=== PATIENT | female | born 1945 | race Asian ===

== ENCOUNTER 2016-09-06 09:54 | Inpatient (IN) | payer MEDICARE, OTHER ==
[~2016-09-06] VITALS: Ht 149.9 cm; Wt 49.4 kg
[2016-09-06] MEDS ORDERED: SODIUM CHLORIDE FLUSH 10ML SYR IVF ONE (10:00)
[2016-09-06] MEDS ORDERED: CHOL400C11 PO (10:31)
[2016-09-06] MEDS ORDERED: FERR325T10 PO (10:31)
[2016-09-06] MEDS ORDERED: SEVE800T PO (10:31)
[2016-09-06] MEDS ORDERED: LISI-170 PO (10:31)
[2016-09-06] MEDS ORDERED: MULT-658 PO (10:31)
[2016-09-06] MEDS ORDERED: INSU100V8 SQ (10:31)
[2016-09-06] MEDS ORDERED: PARI1CAP3 PO (10:31)
[2016-09-06] MEDS ORDERED: AMLO10TA2 PO ×2 (10:31→15:27)
[2016-09-06 10:48] LABS: ASPARTATE AMINO TRANSFERASE 40 U/L (15-37)
[2016-09-06 10:53] LABS: BLOOD UREA NITROGEN 132 mg/dL (7-18)
[2016-09-06] MEDS ORDERED: SODIUM CHLORIDE FLUSH 10ML SYR IVF PRN (11:00)
[2016-09-06] MEDS ORDERED: ONDANSETRON 2MG/ML, 2ML IVP PRN (12:00)
[2016-09-06] MEDS ORDERED: INSULIN GLARGINE HUM REC ANLOG 1 UNIT SQ SCH (12:00)
[2016-09-06] MEDS ORDERED: MORPHINE SULFATE 4 MG/ML, 1ML IVPush PRN (12:00)
[2016-09-06] MEDS ORDERED: HYDROcodone/APAP 5/325 TABLET PO PRN (12:00)
[2016-09-06] MEDS ORDERED: LORazepam 2 MG/ML, 1ML IVPush PRN (12:00)
[2016-09-06 12:26] LABS: IS PT STATUS REG ER OR PRE ER? NO
[2016-09-06 12:36] VITALS: BP 108/64
[2016-09-06] MEDS ORDERED: GABA100C PO (15:27)
[2016-09-06] MEDS ORDERED: LOVA40TA2 PO (15:27)
[2016-09-06] MEDS ORDERED: LABE200T3 PO (15:27)
[2016-09-06] MEDS ORDERED: GABA100C8 PO (15:27)
[2016-09-06] MEDS ORDERED: LISI40TA PO (15:27)
[2016-09-06] MEDS ORDERED: CLOP75TA PO (15:27)
[2016-09-06] MEDS ORDERED: HYDR-3342 PO (15:27)
[2016-09-06 15:37] VITALS: BP 113/60
[2016-09-06 15:59] VITALS: BP 130/62
[2016-09-06] MEDS: INSULIN REGULAR 100 UNITS/ML, 3ML VIAL SQ-INSULIN SCH ×2 (16:00→21:00)
[2016-09-06] MEDS ORDERED: SEVELAMER 800MG TABLET PO SCH (16:00)
[2016-09-06 16:30] VITALS: BP 127/62
[2016-09-06] MEDS: SEVELAMER 800MG TABLET PO SCH (17:00)
[2016-09-06 17:34] LABS: IS PT STATUS REG ER OR PRE ER? YES
[2016-09-06] MEDS: LABETALOL 200 MG TABLET PO SCH (18:00)
[2016-09-06] MEDS ORDERED: DARBEPOETIN 100 MCG/ML SQ SCH (19:00)
[2016-09-06 19:45] LABS: ABG COLLECTION SITE RIGHT RADIAL; COLLATERAL CIRCULATION TESTING NORMAL
[2016-09-06 20:00] VITALS: BP 150/70
[2016-09-06] MEDS ORDERED: NITROGLYCERIN 0.4 MG BOTTLE (25 TABS) SL ONE (20:30)
[2016-09-06] MEDS: SODIUM CHLORIDE FLUSH 10ML SYR IVF SCH (21:00)
[2016-09-06] MEDS ORDERED: LISINOPRIL 20 MG TABLET PO SCH (21:00)
[2016-09-06] MEDS: LOVASTATIN 40 MG TABLET PO SCH (22:52)
[2016-09-06] MEDS: GABAPENTIN 100 MG CAPSULE PO SCH (22:53)
[2016-09-06] MEDS: LISINOPRIL 20 MG TABLET PO SCH (22:54)
[2016-09-06 23:25] LABS: IS PT STATUS REG ER OR PRE ER? NO
[2016-09-06] MEDS: HEPARIN 25,000 UNITS/500ML PMX 500 ML IV PRN (23:29)
[2016-09-06] MEDS ORDERED: HEPARIN 5,000 UNITS/ML, 1ML IV ONE (23:30)
[2016-09-07] VITALS (7 sets, daily range): BP systolic 76–120; BP diastolic 53–63
[2016-09-07 06:02] LABS: BLOOD UREA NITROGEN 54 mg/dL (7-18)
[2016-09-07 06:03] LABS: IS PT STATUS REG ER OR PRE ER? NO
[2016-09-07] MEDS: HEPARIN 5,000 UNITS/ML, 1ML IV PRN ×3 (06:48→21:30)
[2016-09-07] MEDS: INSULIN REGULAR 100 UNITS/ML, 3ML VIAL SQ-INSULIN SCH ×4 (07:00→21:32)
[2016-09-07] MEDS: AMLODIPINE 5 MG TABLET PO SCH (09:00)
[2016-09-07] MEDS ORDERED: FAMOTIDINE 20 MG/2 ML IV SCH (09:00)
[2016-09-07] MEDS ORDERED: AMLODIPINE BESYLATE PO SCH (09:00)
[2016-09-07] MEDS: SODIUM CHLORIDE FLUSH 10ML SYR IVF SCH ×2 (09:00→21:28)
[2016-09-07] MEDS: FERROUS SULFATE 325 MG TABLET PO SCH (10:01)
[2016-09-07] MEDS: MULTIVITAMIN 1 TABLET PO SCH (10:01)
[2016-09-07] MEDS: FAMOTIDINE 20 MG TABLET PO SCH (10:01)
[2016-09-07] MEDS: LABETALOL 200 MG TABLET PO SCH ×3 (10:01→18:17)
[2016-09-07] MEDS: PARICALCITOL 1 MCG CAPSULE PO SCH (10:01)
[2016-09-07] MEDS: SEVELAMER 800MG TABLET PO SCH ×3 (10:01→17:46)
[2016-09-07] MEDS: CHOLECALCIFEROL 400 UNITS TABLET PO SCH (10:01)
[2016-09-07] MEDS ORDERED: DARBEPOETIN 100 MCG/ML SQ SCH (10:58)
[2016-09-07] MEDS: CLOPIDOGREL 75 MG TABLET PO SCH (12:58)
[2016-09-07] MEDS: LISINOPRIL 20 MG TABLET PO SCH ×2 (13:28→21:27)
[2016-09-07 13:54] LABS: OCCBLD OBC PASS
[2016-09-07] MEDS: VANCOMYCIN 50 MG/ML ORAL SUSP PO SCH ×2 (15:09→21:26)
[2016-09-07] MEDS ORDERED: CARVEDILOL 6.25 MG TABLET PO SCH (18:00)
[2016-09-07] MEDS ORDERED: PNEUMOCOCCAL 23 VACCINE IM-VACC ONE (18:30)
[2016-09-07] MEDS: LOVASTATIN 40 MG TABLET PO SCH (21:27)
[2016-09-07] MEDS: GABAPENTIN 100 MG CAPSULE PO SCH (21:27)
[2016-09-07] MEDS: INSULIN DETEMIR 100 UNITS/ML, PEN SQ-INSULIN SCH (21:44)
[2016-09-08 01:39] VITALS: BP 118/57
[2016-09-08 04:05] LABS: BLOOD UREA NITROGEN 78 mg/dL (7-18)
[2016-09-08] MEDS: VANCOMYCIN 50 MG/ML ORAL SUSP PO SCH ×4 (06:12→23:07)
[2016-09-08] MEDS: INSULIN REGULAR 100 UNITS/ML, 3ML VIAL SQ-INSULIN SCH ×4 (07:00→21:00)
[2016-09-08 07:21] VITALS: BP 122/52
[2016-09-08] MEDS: PARICALCITOL 1 MCG CAPSULE PO SCH (08:27)
[2016-09-08] MEDS: FAMOTIDINE 20 MG TABLET PO SCH (08:27)
[2016-09-08] MEDS: SEVELAMER 800MG TABLET PO SCH ×3 (08:28→17:52)
[2016-09-08] MEDS: LABETALOL 200 MG TABLET PO SCH ×2 (08:28→17:52)
[2016-09-08] MEDS: SODIUM CHLORIDE FLUSH 10ML SYR IVF SCH ×2 (08:29→21:00)
[2016-09-08] MEDS: CLOPIDOGREL 75 MG TABLET PO SCH (08:29)
[2016-09-08] MEDS: AMLODIPINE 5 MG TABLET PO SCH (08:29)
[2016-09-08] MEDS: MULTIVITAMIN 1 TABLET PO SCH (08:29)
[2016-09-08] MEDS: FERROUS SULFATE 325 MG TABLET PO SCH (08:29)
[2016-09-08] MEDS: LISINOPRIL 20 MG TABLET PO SCH ×2 (08:30→21:10)
[2016-09-08] MEDS: CHOLECALCIFEROL 400 UNITS TABLET PO SCH (08:30)
[2016-09-08] MEDS: HEPARIN 25,000 UNITS/500ML PMX 500 ML IV PRN (08:39)
[2016-09-08] MEDS ORDERED: SODIUM CHLORIDE 0.9% 1,000 ML IV ONE (10:35)
[2016-09-08 13:11] VITALS: BP 119/54
[2016-09-08 20:15] VITALS: BP 112/54
[2016-09-08] MEDS: INSULIN DETEMIR 100 UNITS/ML, PEN SQ-INSULIN SCH (21:00)
[2016-09-08] MEDS: GABAPENTIN 100 MG CAPSULE PO SCH (21:10)
[2016-09-08] MEDS: LOVASTATIN 40 MG TABLET PO SCH (21:10)
[2016-09-09 01:36] VITALS: BP 123/57
[2016-09-09] MEDS: VANCOMYCIN 50 MG/ML ORAL SUSP PO SCH ×3 (05:35→21:27)
[2016-09-09 05:59] LABS: ANTI-Xa-UNFRACTIONATED HEP 0.26 IU/mL (0.30-0.70)
[2016-09-09 06:13] LABS: BLOOD UREA NITROGEN 50 mg/dL (7-18); TOTAL IRON BINDING CAPACITY 250 mcg/dL (250-450)
[2016-09-09] MEDS: HEPARIN 5,000 UNITS/ML, 1ML IV PRN (06:41)
[2016-09-09] MEDS: INSULIN REGULAR 100 UNITS/ML, 3ML VIAL SQ-INSULIN SCH ×4 (07:00→21:25)
[2016-09-09 07:22] VITALS: BP 132/65
[2016-09-09] MEDS: LABETALOL 200 MG TABLET PO SCH ×2 (07:37→18:00)
[2016-09-09] MEDS: CHOLECALCIFEROL 400 UNITS TABLET PO SCH (07:37)
[2016-09-09] MEDS: FERROUS SULFATE 325 MG TABLET PO SCH (07:38)
[2016-09-09] MEDS: FAMOTIDINE 20 MG TABLET PO SCH (07:38)
[2016-09-09] MEDS: MULTIVITAMIN 1 TABLET PO SCH (07:39)
[2016-09-09] MEDS: AMLODIPINE 5 MG TABLET PO SCH (07:39)
[2016-09-09] MEDS: LISINOPRIL 20 MG TABLET PO SCH ×2 (07:39→21:27)
[2016-09-09] MEDS: CLOPIDOGREL 75 MG TABLET PO SCH (07:39)
[2016-09-09] MEDS: PARICALCITOL 1 MCG CAPSULE PO SCH (07:40)
[2016-09-09] MEDS: SEVELAMER 800MG TABLET PO SCH ×3 (07:43→21:27)
[2016-09-09] MEDS: SODIUM CHLORIDE FLUSH 10ML SYR IVF SCH ×2 (07:44→21:28)
[2016-09-09 12:01] VITALS: BP 111/52
[2016-09-09] MEDS ORDERED: BIVALIRUDIN 250 MG ONE (13:29)
[2016-09-09] MEDS ORDERED: TICAGRELOR 90 MG TABLET ONE (13:29)
[2016-09-09] MEDS ORDERED: MIDAZOLAM 1 MG/ML, 5ML ONE (13:29)
[2016-09-09] MEDS ORDERED: FENTANYL PF 100 MCG/2ML ONE (13:29)
[2016-09-09] MEDS ORDERED: LIDOCAINE 2%, 20ML ONE (13:30)
[2016-09-09] MEDS ORDERED: HEPARIN 1,000 UNITS/ML, 10ML ONE (13:30)
[2016-09-09 19:58] VITALS: BP 146/62
[2016-09-09] MEDS: INSULIN DETEMIR 100 UNITS/ML, PEN SQ-INSULIN SCH (21:26)
[2016-09-09] MEDS: LOVASTATIN 40 MG TABLET PO SCH (21:29)
[2016-09-09] MEDS: GABAPENTIN 100 MG CAPSULE PO SCH (21:29)
[2016-09-10 01:18] VITALS: BP 127/63
[2016-09-10] MEDS: VANCOMYCIN 50 MG/ML ORAL SUSP PO SCH ×3 (02:52→15:00)
[2016-09-10 05:51] LABS: BLOOD UREA NITROGEN 35 mg/dL (7-18)
[2016-09-10] MEDS: INSULIN REGULAR 100 UNITS/ML, 3ML VIAL SQ-INSULIN SCH ×3 (07:00→16:00)
[2016-09-10 08:25] VITALS: BP 134/69
[2016-09-10] MEDS: PARICALCITOL 1 MCG CAPSULE PO SCH (08:35)
[2016-09-10] MEDS: CHOLECALCIFEROL 400 UNITS TABLET PO SCH (08:35)
[2016-09-10] MEDS: LISINOPRIL 20 MG TABLET PO SCH (08:35)
[2016-09-10] MEDS: CLOPIDOGREL 75 MG TABLET PO SCH (08:36)
[2016-09-10] MEDS: SEVELAMER 800MG TABLET PO SCH ×2 (08:36→11:10)
[2016-09-10] MEDS: FAMOTIDINE 20 MG TABLET PO SCH (08:36)
[2016-09-10] MEDS: FERROUS SULFATE 325 MG TABLET PO SCH (08:36)
[2016-09-10] MEDS: AMLODIPINE 5 MG TABLET PO SCH (08:36)
[2016-09-10] MEDS: MULTIVITAMIN 1 TABLET PO SCH (08:36)
[2016-09-10] MEDS: LABETALOL 200 MG TABLET PO SCH (08:36)
[2016-09-10] MEDS: SODIUM CHLORIDE FLUSH 10ML SYR IVF SCH (08:39)
[2016-09-10] MEDS ORDERED: ISOSORBIDE MONONITRATE ER 30 MG TABLET PO SCH (12:00)
[2016-09-10 15:13] VITALS: BP 100/54
[2016-09-10] MEDS ORDERED: ISOS30TA8 PO (16:02)
[2016-09-10] MEDS ORDERED: VANC1VIA3 PO (16:02)
[2016-09-10 23:32] LABS: HEP B SURF. AB 8.6 mIU/mL (0.0-10.0)
== END 2016-09-10 17:45 | disposition home or self-care (01) | DRG 280 ==
LOC: ED 10:55 → EDIP 10:56 → ED 11:34 → 4EST 12:28 → 5SO 21:49
PROVIDERS: ADMIT Family Medicine; ATTEND Internal Medicine
PROC: 30233N1 Transfusion of Nonautologous Red Blood Cells into Peripheral Vein, Percutaneous Approach (ICD-10-PCS; principal; 2016-09-06)
PROC: 5A1D60Z (ICD-10-PCS; 2016-09-06)
PROC: 4A023N7 Measurement of Cardiac Sampling and Pressure, Left Heart, Percutaneous Approach (ICD-10-PCS; 2016-09-09)
PROC: B2111ZZ Fluoroscopy of Multiple Coronary Arteries using Low Osmolar Contrast (ICD-10-PCS; 2016-09-09)
PROC: B2151ZZ Fluoroscopy of Left Heart using Low Osmolar Contrast (ICD-10-PCS; 2016-09-09)
DX: I21.4 Non-ST elevation (NSTEMI) myocardial infarction (principal); N18.6 End stage renal disease; G93.41 Metabolic encephalopathy; A04.7 Enterocolitis due to Clostridium difficile; E87.2 Acidosis; I13.2 Hypertensive heart and chronic kidney disease with heart failure and with stage 5 chronic kidney disease, or end stage renal disease; I50.22 Chronic systolic (congestive) heart failure; E87.5 Hyperkalemia; D63.1 Anemia in chronic kidney disease; E11.21 Type 2 diabetes mellitus with diabetic nephropathy; E11.22 Type 2 diabetes mellitus with diabetic chronic kidney disease; E11.65 Type 2 diabetes mellitus with hyperglycemia; E55.9 Vitamin D deficiency, unspecified; I25.2 Old myocardial infarction; I25.5 Ischemic cardiomyopathy; I35.8 Other nonrheumatic aortic valve disorders; I73.9 Peripheral vascular disease, unspecified; I77.1 Stricture of artery; Z66 Do not resuscitate; Z79.4 Long term (current) use of insulin; Z79.899 Other long term (current) drug therapy; Z87.891 Personal history of nicotine dependence; Z95.5 Presence of coronary angioplasty implant and graft; Z98.51 Tubal ligation status; Z99.2 Dependence on renal dialysis; Z23 Encounter for immunization; I25.119 Atherosclerotic heart disease of native coronary artery with unspecified angina pectoris
CPT/HCPCS: 36415; 36600; 70450; 71010; 80048; 80053; 80061; 82272; 82728; 82803; 82962; 83036; 83540; 83550; 83605; 83690; 84100; 84443; 84484; 85014; 85018; 85025; 85520; 85610; 86704; 86706; 86850; 86900; 86923; 87324; 87340; 90732; 93005; 93306; 93458; 93880; 99285; C1760; C1894; J0583; J0881; J1644; J1815; J2250; J2405; J3010; J3370; J3490; J2060; P9016; Q9967